=== PATIENT | male | born 1970 | race Caucasian/White ===

== ENCOUNTER 2017-04-24 13:03 | Emergency (ER) | payer BC ==
[~2017-04-24] VITALS: Ht 167.6 cm; Wt 85.0 kg
[2017-04-24 13:20] VITALS: Ht 167.6 cm; Wt 85.0 kg
[2017-04-24] MEDS ORDERED: SOD CHLORIDE 0.9% 1,000 ML IV STA (13:50)
[2017-04-24 14:12] LABS: BASOPHILS % 0.8 % (0.0-2.0); EOSINOPHILS # 0.1 10^3/ul (0.0-0.5); EOSINOPHILS % 2.1 % (0.0-7.0); HEMOGLOBIN 15.2 g/dl (14.0-18.0); LYMPHOCYTES # 1.1 10^3/ul (0.8-2.9); LYMPHOCYTES % 21.2 % (15.0-51.0); MEAN CORPUSCULAR HEMOGLOBIN 30.3 pg (29.0-33.0); MEAN CORPUSCULAR HGB CONC 34.5 g/dl (32.0-37.0); MEAN CORPUSCULAR VOLUME 87.8 fl (82.0-101.0); MEAN PLATELET VOLUME 10.9 fl (7.4-10.4); MONOCYTE # 0.4 10^3/ul (0.3-0.9); MONOCYTES % 6.9 % (0.0-11.0); NEUTROPHILS % 68.4 % (39.0-77.0); PLATELET COUNT 141 10^3/UL (140-415); RED BLOOD COUNT 5.01 10^6/ul (4.70-6.10); RED CELL DISTRIBUTION WIDTH 12.1 % (11.5-14.5); WHITE BLOOD COUNT 5.2 10^3/ul (4.8-10.8)
[2017-04-24 14:29] LABS: INR 1.01; PROTIME 13.3 Sec (12.2-14.2)
[2017-04-24 14:32] LABS: ALANINE AMINOTRANSFERASE 79 IU/L (13-69); ALBUMIN 4.3 g/dl (3.3-4.9); ALBUMIN/GLOBULIN RATIO 1.59; ALKALINE PHOSPHATASE 61 IU/L (42-121); ANION GAP 11 (8-16); ASPARTATE AMINO TRANSFERASE 39 IU/L (15-46); BILIRUBIN,INDIRECT 0.6 mg/dl (0-1.1); BILIRUBIN,TOTAL 0.6 mg/dl (0.2-1.3); BLOOD UREA NITROGEN 13 mg/dl (7-20); CALCIUM 10.1 mg/dl (8.4-10.2); CARBON DIOXIDE 30 mmol/L (21-31); CHLORIDE 100 mmol/L (97-110); CREATININE 0.98 mg/dl (0.61-1.24); GLUCOSE 123 mg/dl (70-220); POTASSIUM 3.7 mmol/L (3.5-5.1); SODIUM 137 mmol/L (135-144)
--- NOTE | 2017-04-24 14:40 | ERD ---
ER Documentation Chief Complaint Date/Time DATE: 04/24/17 TIME: 14:37 Chief Complaint States sitting in a restaurant eating and passed out HPI 46-year-old man here for evaluation after syncopal episode while sitting down at a [employer] restaurant, he had a few pieces to eat prior to fainting. He states for about a minute prior to his syncopal episode he did experience some chest discomfort palpitations and shortness of breath. He states he has had intermittent palpitations for the last few months which usually last for a few seconds. He denies new medications, no recent fevers or chills, no calf or leg swelling, no vomiting or diarrhea, no seizure activity. Patient denies personal family risk factors for early coronary artery disease or sudden cardiac . ROS All systems reviewed and are negative except as per history of present illness. Allergies Allergies: Coded Allergies: No Known Allergy (Unverified , 04/24/17) PMhx/Soc None Hx Alcohol Use: Yes Hx Substance Use: No Hx Tobacco Use: No Smoking Status: Never smoker FmHx Family History: No diabetes Physical Exam Vitals Vital Signs Date Time Temp Pulse Resp B/P Pulse Ox O2 Delivery O2 Flow Rate FiO2 04/24/17 15:46 98.0 77 18 117/68 99 Room Air 04/24/17 13:20 98.3 62 20 136/93 98 Physical Exam GENERAL: Well-developed, well-nourished, well-hydrated, in no apparent distress , looks nontoxic in appearance HEENT: Moist mucous membranes, pink conjunctiva, no cervical spine tenderness or step-off deformities, no goiter, no jaundice or icterus, extraocular movements intact without pain. No submandibular induration, and no pharyngeal erythema NEURO: Alert and oriented 3, cranial nerves II through XII intact bilaterally, pupils equal round reactive to light, no focal deficits or facial asymmetry, sensation intact distally Strength 5/5 in upper and lower extremities bilaterally CARDIAC: Regular rate and rhythm, no murmurs rubs or gallops LUNGS: Clear bilaterally no wheezing crackles or stridor ABDOMEN: Soft nontender, no guarding, no rigidity, no rebound, no psoas sign no obturator sign. Normoactive bowel sounds SKIN: Warm and dry to touch, no abrasions, contusions, or hematomas, no lacerations, no ecchymosis, no target lesions, and without ulcers EXTREMITIES: No clubbing cyanosis or edema, calves are bilaterally symmetrical, no Homans sign, no popliteal cord sign. Distal pulses equal and bilateral PSYCH: Normal affect without agitation or irritability Result Diagram: 04/24/17 1400 04/24/17 1400 Results 24 hrs Laboratory Tests Test 04/24/17 14:00 White Blood Count 5.210^3/ul Red Blood Count 5.0110^6/ul Hemoglobin 15.2g/dl Hematocrit 44.0% Mean Corpuscular Volume 87.8fl Mean Corpuscular Hemoglobin 30.3pg Mean Corpuscular Hemoglobin Concent 34.5g/dl Red Cell Distribution Width 12.1% Platelet Count 26457^3/UL Mean Platelet Volume 10.9fl Neutrophils % 68.4% Lymphocytes % 21.2% Monocytes % 6.9% Eosinophils % 2.1% Basophils % 0.8% Nucleated Red Blood Cells % 0.0/100WBC Neutrophils # (Manual) 3.510^3/ul Lymphocytes # 1.110^3/ul Monocytes # 0.410^3/ul Eosinophils # 0.110^3/ul Basophils # 0.010^3/ul Nucleated Red Blood Cells # 0.010^3/ul Prothrombin Time 13.3Sec Prothrombin Time Ratio 1.0 INR International Normalized Ratio 1.01 Sodium Level 137mmol/L Potassium Level 3.7mmol/L Chloride Level 100mmol/L Carbon Dioxide Level 30mmol/L Anion Gap 11 Blood Urea Nitrogen 13mg/dl Creatinine 0.98mg/dl Glucose Level 123mg/dl Calcium Level 10.1mg/dl Total Bilirubin 0.6mg/dl Direct Bilirubin 0.00mg/dl Indirect Bilirubin 0.6mg/dl Aspartate Amino Transf (AST/SGOT) 39IU/L Alanine Aminotransferase (ALT/SGPT) 79IU/L Alkaline Phosphatase 61IU/L Troponin I < 0.012ng/ml Total Protein 7.0g/dl Albumin 4.3g/dl Globulin 2.70g/dl Albumin/Globulin Ratio 1.59 Lipase 41U/L Current Medications Medications (Trade) Dose Ordered Sig/Andres Route PRN Reason Start Time Stop Time Status Last Admin Dose Admin Sodium Chloride (NS) 1,000 ml @ 1,000 mls/hr Q1H STAT IV 04/24/17 13:50 04/24/17 14:49 DC 9/8/17 14:11 IV Flush 10 ml 10 ml STK-MED ONCE .ROUTE 04/24/17 15:03 04/24/17 15:04 DC 04/24/17 15:03 Sodium Chloride 100 ml @ ud STK-MED ONCE .ROUTE 04/24/17 15:03 04/24/17 15:04 DC 04/24/17 15:03 Iohexol (Omnipaque) 100 ml @ ud STK-MED ONCE .ROUTE 04/24/17 15:03 04/24/17 15:04 DC 04/24/17 15:03 Iohexol (Omnipaque 350mg/ ml) 50 ml STK-MED ONCE .ROUTE 04/24/17 15:04 04/24/17 15:05 DC 04/24/17 15:04 Procedures/MDM IV line was established patient was placed on cardiac cath lab radiology technologist rhythm strip revealed a sinus rhythm at about 60 bpm with upright P and T waves. Patient was afebrile. EKG performed, read by me revealed a normal sinus rhythm at 61 bpm, normal axis , narrow QRS no concerning ST elevations or depressions noted. CT angiogram of the chest was performed that was negative for pulmonary embolism or aortic issues. Please refer to radiologist dictation for full report. I administered 1 L normal saline intravenously. CBC and electrolytes are normal, liver function tests normal, troponin negative. Differential diagnoses considered, included but not limited to acute coronary syndrome, pulmonary embolism, aortic dissection, abdominal aortic aneurysm, sepsis, stroke, meningitis, encephalitis, pneumonia, appendicitis, cholecystitis , bowel obstruction, pyelonephritis, nephrolithiasis, cystitis, as well as metabolic, hematologic, and electrolyte abnormalities. As well as abscess, cellulitis, fractures, and dislocations. Patient feels much better at this time, and vital signs are normal, symptoms have improved. I did give strict instructions to return to the ED if symptoms continue or worsen, patient will otherwise follow-up with primary care physician. Patient understood instructions and agreed to plan. Disclaimer: Inadvertent spelling and grammatical errors are likely due to EHR/ dictation software use and do not reflect on the overall quality of patient care. Also, please note that the electronic time recorded on this note does not necessarily reflect the actual time of the patient encounter. Departure Diagnosis: Primary Impression: Syncope Syncope type: unspecified Qualified Code: R55 - Syncope, unspecified syncope type Condition: ALEENA Ramos MD Apr 24, 2017 14:40
[2017-04-24 14:46] LABS: TROPONIN-I < 0.012 ng/ml (0.00-0.12)
[2017-04-24] MEDS ORDERED: SOD CHLORIDE 0.9% 100 ML ONE (15:03)
[2017-04-24] MEDS ORDERED: IOHEXOL 100 ML ONE (15:03)
[2017-04-24] MEDS ORDERED: IOHEXOL 350MG/ML 50 ML BTL ONE (15:04)
--- NOTE | 2017-04-24 15:27 | RADRPT ---
PROCEDURE: CTA Chest. CLINICAL INDICATION: Chest pain TECHNIQUE: The study was performed utilizing a multidetector CT scanner. Direct spiral 1 mm axial sections were obtained from the thoracic inlet to the upper abdomen with the use of 100 cc of Omnipa que 350 nonionic intravenous contrast material and reformatted at 3 mm. Coronal and sagittal reforma tions were obtained along with 3-D reconstructions. The images were reviewed on a PACS workstation. One or more of the following dose reduction techniques were used: - Automated exposure control. - Adjustment of the mA and/or kV according to patient size. Use of iterative reconstruction technique. DLP 756.1 mGycm CTDIvol 19.7 and 17.5 mGy COMPARISON: No prior studies are available for comparison. FINDINGS: The bilateral lower lobe basilar subsegmental pulmonary arteries are not fully assessed secondary to motion. The remainder of the pulmonary arteries demonstrate no evidence of filling defect. There is no evidence of aortic dissection. There is no cardiomegaly. There is no lung consolidation, pleural effusion, or pneumothorax. There is no suspicious nodule or mass. The airways are patent. There are no enlarged mediastinal or axillary lymph nodes. Upper abdominal structures are within normal limits. There is no acute acute osseous abnormality. IMPRESSION: No visible pulmonary embolus. The bibasilar subsegmental pulmonary arteries are obscured by motion. There is no aortic dissection. No acute pulmonary process. RPTAT: AA .Jinny Kramer MD, MD Date Time Electronically viewed and signed by .Jinny Kramer MD, MD on 04/24/2017 15:27 .Aracely/
[2017-04-24 15:46] VITALS: BP 117/68; PULSE 77; RESP 18; TEMP 98
== END 2017-04-24 15:47 | disposition home or self-care (01) ==
LOC: E/R 13:03
DX: R55 Syncope and collapse (principal)
CPT/HCPCS: 36415; 71275; 80053; 83690; 84484; 85025; 85610; 93005; 99285; J7030; Q9967